=== PATIENT | male | born 1995 | race Two or more races ===

== ENCOUNTER 2017-02-23 17:57 | Emergency (ER) | payer BC ==
[~2017-02-23] VITALS: Ht 172.7 cm; Wt 63.5 kg
[2017-02-23 18:02] VITALS: BP 114/72
[2017-02-23] MEDS ORDERED: NKM (18:06)
[2017-02-23] MEDS ORDERED: Hydrogen Peroxide 473ml Bottle TOPIC ONE (20:47)
[2017-02-23] MEDS ORDERED: PERCOCET 5-3251 EACH ORAL (21:25)
[2017-02-23 21:37] VITALS: BP 121/74
--- NOTE | 2017-02-24 15:26 | Emergency Room Report ---
History of Present Illness General Chief Complaint: Laceration Source: Patient Present Illness HPI 21YOM [employer] patient with lac to right middle finger after accidental caught in bike chain Left hand dominant Denies blunt trauma to finger Denies previous injury Bleeding stopped Pain to distal tip Able to bend at DIP and PIP Allergies: Coded Allergies: No Known Allergies (Unverified , 02/23/17) Patient History Past Medical History: none Past Surgical History: none Pertinent Family History: none Social History: Denies: alcohol use, drug use, smoking Immunizations: UTD Reviewed Nursing Documentation: PMH: Agreed, PSxH: Agreed Nursing Documentation-PMH Past Medical History: No Stated History Review of Systems All Other Systems: negative except mentioned in HPI Physical Exam Vital Signs Date Time Temp Pulse Resp B/P Pulse Ox O2 Delivery O2 Flow Rate FiO2 02/23/17 18:02 98.1 87 16 114/72 98 Room Air Sp02 EP Interpretation: reviewed, normal General Appearance: normal inspection, well appearing, no apparent distress, alert, GCS 15, non-toxic Head: normocephalic, atraumatic Eyes: bilateral eye EOMI, bilateral eye PERRL ENT: normal ENT inspection, hearing grossly normal, normal voice Neck: normal inspection, full range of motion, supple, no bony tend Respiratory: normal inspection, lungs clear, normal breath sounds, no respiratory distress, no retraction, no wheezing Cardiovascular #1: regular rate, rhythm, no edema Gastrointestinal: normal inspection, normal bowel sounds, non tender, soft, no guarding, no hernia Genitourinary: no CVA tenderness Musculoskeletal: other - Right middle finger: nail broken horizontally in middle about [address]% [address] the way across with lac extending around radial side of distal tip 1cm, msotly abrasion, avulsion of skin Neurologic: normal inspection, alert, oriented x3, responsive, administrative and program specialist III-XII nml as tested, motor strength/tone normal, speech normal Psychiatric: normal inspection, judgement/insight normal, mood/affect normal Skin: normal inspection Lymphatic: normal inspection Procedures Laceration/Wound Repair Laceration/Wound Repair : Consent: Verbal Wound Location: upper extremity Wound's Depth, Shape: superficial Wound Explored: clean Betadine Prep?: Yes Anesthesia: other - Finger block done to right middle finger Wound Debrided: minimal Wound Repaired With: Dermabond Layer Closure?: No Sterile Dressing Applied?: Yes Splint Applied?: Yes Type of Splint Applied: Splint applied to right middle finger Progress Skin mostly avulsed, was repaired with dermabond Broken nail also repaired with dermabond Splint placed on finger Medical Decision Making Diagnostic Impression: Primary Impression: Laceration Additional Impression: Laceration of finger with damage to nail Qualified Codes: S61.312A - Laceration without foreign body of right middle finger with damage to nail, initial encounter ER Course Right nail broken with avulsion of skin Repaired with dermabond See procedure note Rx Lucas Last Vital Signs Date Time Temp Pulse Resp B/P Pulse Ox O2 Delivery O2 Flow Rate FiO2 02/23/17 21:37 98.1 72 14 121/74 100 Room Air Status: improved Disposition: HOME, SELF-CARE Condition: Improved Scripts Oxycodone/Acetaminophen 5-325* (PERCOCET 5-325 MG TABLET*) 1 Each Tablet 1 TAB ORAL BID Y for Severe Pain (Pain Scale 7-10) for 7 Days, #20 TAB Prov: CHAGO MONAE M.D. 02/23/17 Referrals: NOT CHOSEN IPA/,REFERRING (PCP) Patient Instructions: Laceration Care, Adult, [id number] Additional Instructions: - Keep splint on finger for 24-48 hours and keep clean/dry - Glue will fall off when finger laceration is healed - Follow up with your primary care doctor CHAGO MONAE M.D. Feb 24, 2017 15:26
== END 2017-02-23 21:45 | disposition home or self-care (01) ==
LOC: EMR 19:23
DX: S61.212A Laceration without foreign body of right middle finger without damage to nail, initial encounter (principal); W23.0XXA Caught, crushed, jammed, or pinched between moving objects, initial encounter; Y93.9 Activity, unspecified; Y92.9 Unspecified place or not applicable